=== PATIENT | male | born 1995 | race Caucasian/White ===

== ENCOUNTER 2018-01-21 14:07 | Emergency (ER) | payer BC, SELFPAY ==
[2018-01-21 14:27] LABS: Clarity Clear (Clear); Glucose, Urine (Dipstick) Negative (Negative); Leukocyte Trace (Negative); Nitrite Negative (Negative); Protein, Urine (Dipstick) Negative (Neg-Trace); pH, Urine 6.5 (5.0-9.0)
[2018-01-21 14:28] LABS: Bilirubin Negative (Negative); Blood, Urine Trace (Negative)
[2018-01-21 14:36] LABS: Bacteria/HPF 1+ HPF (None Seen); RBC/HPF 0-3 HPF (0-3); Squamous Epithelial 0-3 HPF (0-3); WBC/HPF 0-3 HPF (0-3)
[2018-01-21] MEDS ORDERED: Cephalexin 500 MG CAP ONE (14:50)
[2018-01-21] MEDS ORDERED: metroNIDAZOLE 250 MG TAB ONE (14:50)
[2018-01-24 00:39] LABS: Chlamydia by PCR Not Detected (NotDetected); GC by PCR Not Detected (NotDetected)
== END 2018-01-21 14:49 | disposition home or self-care (01) ==
LOC: BURERS 14:07
DX: N39.0 Urinary tract infection, site not specified (principal); F17.210 Nicotine dependence, cigarettes, uncomplicated
CPT/HCPCS: 81003; 81015; 87491; 87591; 99283

== ENCOUNTER 2018-11-28 08:33 | Emergency (ER) | payer BC | END 2018-11-28 09:25 | disposition home or self-care (01) | LOC: BURERS 08:33 | DX: M54.5 Low back pain (principal); F32.9 Major depressive disorder, single episode, unspecified; F17.210 Nicotine dependence, cigarettes, uncomplicated | CPT/HCPCS: 99281 ==

== ENCOUNTER 2019-04-18 11:46 | Outpatient (CLI) | payer BC ==
--- NOTE | 2019-04-18 21:32 | RAD ---
LUMBAR SPINE THREE VIEWS: 04/18/19 No fracture or disc space narrowing was seen. No pars defects were evident. The SI joints are symmetr ical. There is partial sacralization of L5 bilaterally. IMPRESSION: No acute finding. POS: HOME
== END 2019-04-18 11:47 | disposition home or self-care (01) ==
LOC: BURRAD 11:46
PROVIDERS: ATTEND Physician Assistant
DX: M54.42 Lumbago with sciatica, left side (principal)
CPT/HCPCS: 72100

== ENCOUNTER 2019-04-27 21:57 | Emergency (ER) | payer BC ==
[2019-04-27] MEDS ORDERED: HYDROcodone/Acetaminophen 10/325 mg Tablet ONE (22:23)
== END 2019-04-27 22:25 | disposition home or self-care (01) ==
LOC: BURERS 21:57
DX: M54.5 Low back pain (principal); F17.210 Nicotine dependence, cigarettes, uncomplicated
CPT/HCPCS: 99283